=== PATIENT | male | born 2000 | race Caucasian/White ===

== ENCOUNTER 2021-10-27 10:11 | Emergency (ER) | payer OTHER, SELFPAY ==
[2021-10-27 10:26] VITALS: BP 108/68; PULSE 73; RESP 16; TEMP 37.2; O2SAT 100
--- NOTE | 2021-10-27 10:49 | ED.GENADULT ---
HPI - General Adult General Chief complaint: Ear Stated complaint: SORE THROAT Source: patient Mode of arrival: ambulatory Limitations: no limitations History of Present Illness HPI narrative: 21 y/o male. Presents to [facility] today with acute complaints of sore throat, 'hurts to swallow', worsening in the past 24 hours. Client describes a history of frequent and severe Streptococcal sore throat. He tells me his symptoms always start just like this . No fevers, nuchal rigidity, myalgias. No dyspnea, wheezing, involuntary drooling, cough. He denies known ill contacts. He is without additional acute c/o illness upon PE. Related Data Allergies Allergy/AdvReac Type Severity Reaction Status Date / Time No Known Allergies Allergy Verified 10/27/21 10:25 Review of Systems Review of Systems: CONSTITUTIONAL: Denies fever, chills, sweats. EYES: Denies visual changes, redness, discharge. ENT: Denies rhinorrhea, congestion, otalgia. Positive sire throat. CARDIOVASCULAR: Denies chest pain, palpitations, edema. RESPIRATORY: Denies dyspnea, wheezing, cough GASTROINTESTINAL: Denies abdominal pain, nausea, vomiting, diarrhea. GENITOURINARY: Denies dysuria, hematuria, abnormal discharge SKIN: Denies rash or itching. MUSCULOSKELETAL: Denies acute back pain, joint pain, or myalgia. NEUROLOGIC: Denies numbness, or focal weakness. PSYCHIATRIC: Denies anxiety or depression. All systems reviewed & are unremarkable except as noted in HPI and below Exam Narrative: GENERAL: This is a well-nourished, well-developed adult, in no apparent distress. HEAD: normocephalic, atraumatic. EYES: PERRL. Sclera clear/white. EARS: External ears normal, auditory canals clear and without drainage, TMs normal. NOSE: External nose normal. Positive Rhinorrhea, no obstruction, nares patent. THROAT: Mucous membranes moist, posterior pharynx is erythematous, scant exudative changes. No airway swelling or concern. NECK: Neck supple, non-tender without lymphadenopathy, masses or thyromegaly. CARDIOVASCULAR: Regular rate and rhythm without murmurs, gallops, or rubs. RESPIRATORY: Clear to auscultation. Breath sounds equal bilaterally. No wheezes, rales, or rhonchi. GASTROINTESTINAL: Abdomen soft, non-tender, nondistended. Bowel sounds are active. No guarding. SKIN: warm, intact with no suspicious lesions or rash, good texture and turgor. NEURO: Alert, active, and age appropriate. No focal neurologic deficits. EXTREMITIES: Negative. Course Vital Signs Vital signs: Vital Signs Temperature 37.2 C 10/27/21 10:26 Pulse Rate 73 10/27/21 10:26 Respiratory Rate 16 10/27/21 10:26 Blood Pressure 108/68 10/27/21 10:26 Pulse Oximetry 100 10/27/21 10:26 Temperature 37.2 C 10/27/21 10:26 Pulse Rate 73 10/27/21 10:26 Respiratory Rate 16 10/27/21 10:26 Blood Pressure 108/68 10/27/21 10:26 Pulse Oximetry 100 10/27/21 10:26 Medical Decision Making Differential Diagnosis Differential Diagnosis: Differential Diagnosis: Consideration of the following conditions may be warranted for the presenting problem, they are not final diagnoses: upper respiratory infection, otitis media, sinusitis, RSV viral infection, bronchitis, pharyngitis, Streptococcal sore throat, COVID-19, and other. Medical Records Medical records reviewed: Yes I reviewed the external patient's medical records. Vital Signs Vital Signs: Vital Signs Temperature 37.2 C 10/27/21 10:26 Pulse Rate 73 10/27/21 10:26 Respiratory Rate 16 10/27/21 10:26 Blood Pressure 108/68 10/27/21 10:26 Pulse Oximetry 100 10/27/21 10:26 Temperature 37.2 C 10/27/21 10:26 Pulse Rate 73 10/27/21 10:26 Respiratory Rate 16 10/27/21 10:26 Blood Pressure 108/68 10/27/21 10:26 Pulse Oximetry 100 10/27/21 10:26 Lab Data Lab results reviewed: Yes I reviewed the patient's lab results. Lab results narrative: Rapid Strep Negative. Labs:
== END 2021-10-27 11:17 | disposition home or self-care (01) ==
PROVIDERS: Emergency Provider Nurse Practitioner Adult Health
DX: J02.9 Acute pharyngitis, unspecified (principal)
CPT/HCPCS: 87081; 87880; 99213; G0463

== ENCOUNTER 2021-10-30 14:02 | Emergency (ER) | payer OTHER, SELFPAY ==
--- NOTE | 2021-10-30 14:10 | PC.NURSE ---
Patient was never seen by this nurse. Left from registration. Was here thursday for same symptoms and left when he found he would be charged again for the visit.
== END 2021-10-30 14:19 | disposition left against medical advice (07) ==
PROVIDERS: Emergency Provider Nurse Practitioner Family
DX: Z53.21 Procedure and treatment not carried out due to patient leaving prior to being seen by health care provider (principal)
CPT/HCPCS: 99199